=== PATIENT | female | born 1970 | race Caucasian/White ===

== ENCOUNTER 2017-02-15 15:17 | Emergency (ER) | payer MEDICAID ==
[~2017-02-15] VITALS: Wt 69.0 kg
[~2017-02-15 15:17] MED LIST: ABCC1C PO; BACTDS PO; BEN25 PO; CEPH-443 PO; LORA10TA3 PO; PRED20TA PO
--- NOTE | 2017-02-15 15:57 | ERD ---
ER Documentation Chief Complaint Date/Time DATE: 02/15/17 TIME: 15:51 Chief Complaint mouth injury from a fall no bleeding. mild swelling HPI Pleasant 46-year-old female presents to emergency department today with 1 day history of mouth injury. Patient states she was reaching for a metal basket and it fell onto the right side of her upper lip. Patient has a small abrasion , and swelling underneath right upper lip. Patient reports that hurts more today than yesterday. Has not used any medication for symptomatic relief, denies history of HSV virus. Denies any loose teeth, headache, or dry pain. Patient did not get away today and is requesting to be off work until Saturday. ROS All systems reviewed and are negative except as per history of present illness. Medications Home Meds Active Scripts Benzocaine (Oral Analgesic) 12 Ml Solution, 12 ML MM Q3HWA for mouth pain for 7 Days Prov:NATALIYA,MELODY 02/15/17 Diphenhydramine Hcl* (Benadryl*) 25 Mg Cap, 25 MG PO Q6, #30 CAP Prov:SIVA ANNE PA-C 06/20/16 Prednisone* (Prednisone*) 20 Mg Tab, 40 MG PO DAILY for 4 Days, TAB Prov:SIVA ANNE PA-C 06/20/16 Loratadine* (Loratadine*) 10 Mg Tablet, 10 MG PO DAILY, #20 TAB Prov:NATALIA LERNER PA-C 04/02/16 Prednisone* (Prednisone*) 20 Mg Tab, 40 MG PO DAILY for 4 Days, TAB Prov:NATALIA LERNER PA-C 04/02/16 Sulfamethoxazole-Trimethoprim* (Bactrim* DS) 800-160 Mg Tab, 1 TAB PO BID for 7 Days, TAB Prov:NATALIA LERNER PA-C 12/08/15 Cephalexin* (Keflex*) 500 Mg Capsule, 500 MG PO QID for 7 Days, CAP Prov:NATALIA LERNER PA-C 12/08/15 Ygsprvnsbjygj-Walokyiidh-Sqezxpmg-Codeine* (Fioricet w/Codeine*) [id number] -30MG Cap, 1 CAP PO Q4H Y for PAIN LEVEL 1-5, #14 CAP Prov:NATALIA LERNER PA-C 09/16/15 Allergies Allergies: Coded Allergies: No Known Allergy (Unverified , 04/02/16) PMhx/Soc History of Surgery: Yes (c section x's 1) Anesthesia Reaction: No Hx Neurological Disorder: No Hx Respiratory Disorders: No Hx Cardiac Disorders: No Hx Psychiatric Problems: No Hx Miscellaneous Medical Probl: No Hx Alcohol Use: No Hx Substance Use: No Hx Tobacco Use: No Physical Exam Vitals Vital Signs Date Time Temp Pulse Resp B/P Pulse Ox O2 Delivery O2 Flow Rate FiO2 02/15/17 15:19 98.5 100 21 133/84 98 Vitals stable, nursing notes reviewed Physical Exam Const: [ Atraumatic Head: Atraumatic Eyes: Normal Conjunctiva ENT: Right upper lip presents with small abrasion healing as expected, under the right side presents with edema, small abrasion, tender to palpation, patient 's teeth are not loose, tongue is midline, mucous membranes are moist, she has no other visible oral injury. Neck: Full range of motion..~ Resp: Chest rise and fall symmetrically, no rales wheezes or rhonchi to auscultation Cardio: Abd: Skin: Back: Ext: Neur: Awake and alert Psych: Normal Mood and Affect Procedures/MDM 46-year-old Irish-speaking female, translation provided by phone maisha. Reporting that a metal basket fell onto her lip causing her great pain. Physical exam finding consistent with contusion. There is no fluid-filled vesicles, no ecchymosis, no laceration or loose teeth. I feel the patient is stable for discharge at this time. And will benefit from outpatient topical analgesia, ice, and follow-up with primary physician if symptoms fail to improve as anticipated I have discussed results, examination findings, the treatment plan with the patient and family present prior to discharge. Indications for emergent reevaluation, side effects of medication were also discussed. Patient given note that she was seen today, may return to work tomorrow. All questions were answered. Patient verbalizes understanding and agrees with plan of care. Departure Condition: Good Patient Instructions: Contusion, Soft Tissue Additional Instructions: Thank you for for coming to [facility] for your care today. Please ask your nurse or provider if you have questions about your care today and do not leave until all your questions have been answered. Please use any medications given as directed and follow-up with your doctor (or the doctor you were referred to) in the next 2-3 days. If you do not have a primary care doctor you may follow up at the [facility] (listed below). You may also use motrin and tylenol as needed for fever and/or pain unless instructed otherwise by your provider or nurse. Indications for more urgent follow-up have been discussed, but you may return to the Emergency Department at ANY time for any worrisome or worsening symptoms. If you have abdominal pain, please know that no test or exam you received is perfect and you should follow up within 8 hours for continued pain. If you had any imaging studies today, such as an X-Ray or CT Scan, these studies will be reviewed later by a radiologist. You will be called if there are important findings that were not identified today, so make sure the contact information you provided at registration is correct. If you received any narcotic pain control medicine today, such as Vicodin, Morphine or Dilaudid, your coordination and judgment may be affected for a number of hours. Please do not drive or operate heavy machinery, and you may want someone to assist you at home. If you were given a prescription for narcotic medication, be aware that it is very addictive- use sparingly and only if necessary. CHANTE AN Feb 15, 2017 15:57
[2017-02-15] MEDS ORDERED: BENZ12SO MM (15:59)
== END 2017-02-15 16:25 | disposition home or self-care (01) ==
LOC: E/R 15:17
DX: S00.531A Contusion of lip, initial encounter (principal); W20.8XXA Other cause of strike by thrown, projected or falling object, initial encounter; Y92.9 Unspecified place or not applicable
CPT/HCPCS: 99283

== ENCOUNTER 2017-07-12 16:49 | Emergency (ER) | payer MEDICAID ==
[~2017-07-12] VITALS: Ht 157.5 cm; Wt 68.0 kg
[~2017-07-12 16:49] MED LIST changes: +BENZ12SO MM
[2017-07-12 16:54] VITALS: Ht 157.5 cm; Wt 68.0 kg
[2017-07-12] MEDS ORDERED: KETOROLAC 15 MG INJ IM STA (17:18)
[2017-07-12] MEDS ORDERED: DIAZEPAM 5 MG TAB PO ONE (17:30)
--- NOTE | 2017-07-12 17:34 | ERD ---
ER Documentation Chief Complaint Date/Time DATE: 07/12/17 TIME: 17:27 Chief Complaint Complains of back pain x 3 days HPI This 46-year-old Cypriot-speaking female presents to emergency department today for evaluation of back pain 1 week, pain is described as sharp, left-sided radiating down hip to thigh. Patient denies injury, loss of bowel or bladder, pain worse with rising from a seated position. Patient denies any known injury. ROS All systems reviewed and are negative except as per history of present illness. Medications Home Meds Active Scripts Diazepam* (Valium*) 5 Mg Tablet, 5 MG PO Q8 for MUSCLE SPASMS, #10 TAB Prov:NATALIYA,CHANTE 07/12/17 Naproxen* (Naprosyn*) 500 Mg Tablet, 500 MG PO BID Y for PAIN AND/OR INFLAMMATION, #20 TAB Prov:NATALIYA,CHANTE 07/12/17 Benzocaine (Oral Analgesic) 12 Ml Solution, 12 ML MM Q3HWA for mouth pain for 7 Days Prov:NATALIYA,CHANTE 02/15/17 Diphenhydramine Hcl* (Benadryl*) 25 Mg Cap, 25 MG PO Q6, #30 CAP Prov:SIVA ANNE PA-C 06/20/16 Prednisone* (Prednisone*) 20 Mg Tab, 40 MG PO DAILY for 4 Days, TAB Prov:SIVA ANNE PA-C 06/20/16 Loratadine* (Loratadine*) 10 Mg Tablet, 10 MG PO DAILY, #20 TAB Prov:NATALIA LERNER PA-C 04/02/16 Prednisone* (Prednisone*) 20 Mg Tab, 40 MG PO DAILY for 4 Days, TAB Prov:NATALIA LERNER PA-C 04/02/16 Sulfamethoxazole-Trimethoprim* (Bactrim* DS) 800-160 Mg Tab, 1 TAB PO BID for 7 Days, TAB Prov:NATALIA LERNER PA-C 12/08/15 Cephalexin* (Keflex*) 500 Mg Capsule, 500 MG PO QID for 7 Days, CAP Prov:NATALIA LERNER PA-C 12/08/15 Cvyaiirjetiju-Aduoahnqwh-Vennodlx-Codeine* (Fioricet w/Codeine*) [id number] -30MG Cap, 1 CAP PO Q4H Y for PAIN LEVEL 1-5, #14 CAP Prov:NATALIA LERNER PA-C 09/16/15 Allergies Allergies: Coded Allergies: No Known Allergy (Unverified , 04/02/16) PMhx/Soc History of Surgery: Yes (c section x's 1) Anesthesia Reaction: No Hx Neurological Disorder: No Hx Respiratory Disorders: No Hx Cardiac Disorders: No Hx Psychiatric Problems: No Hx Miscellaneous Medical Probl: No Hx Alcohol Use: No Hx Substance Use: No Hx Tobacco Use: No Physical Exam Vitals Vital Signs Date Time Temp Pulse Resp B/P Pulse Ox O2 Delivery O2 Flow Rate FiO2 07/12/17 16:54 98.3 85 20 128/81 98 Physical Exam Const: Well-nourished, well-appearing, well-hydrated, no acute distress Head: Atraumatic Eyes: Normal Conjunctiva, PERRLA, EOMI ENT: Normal External Ears, Nose and Mouth mucous membranes moist. Neck: Resp: Respirations even and unlabored, no respiratory distress Cardio: Abd: Skin: No petechiae or rashes Back: Back Exam: Skin: No bruising or rash Compartments: Soft Motor: Normal flexion and extension of bilateral hip/knee straight leg rises positive on left at 30, pain with flexion, abduction, and abduction Bones: No midline TTP Ext: No cyanosis, or edema Neur: Awake and alert Psych: Normal Mood and Affect Results 24 hrs Current Medications Medications (Trade) Dose Ordered Sig/Nikole Route PRN Reason Start Time Stop Time Status Last Admin Dose Admin Ketorolac Tromethamine (Toradol) 15 mg ONCE STAT IM 07/12/17 17:18 07/12/17 17:20 DC 07/12/17 17:27 Diazepam (Valium) 5 mg ONCE ONCE PO 07/12/17 17:30 07/12/17 17:31 DC 07/12/17 17:24 Procedures/MDM This 46-year-old female presents to emergency department for evaluation of back pain 1 week. Pain is sharp, left-sided and radiating down hip into posterior thigh. Patient denies injury, alteration in bowel or bladder. I have little suspicion of acute coronary syndrome, malignancy, or disc infection. I have little suspicion for cauda equina. Patient straight leg rises are positive on the left at 30, lumbar spine x-ray is not indicated at this time. Patient treated in emergency department with Toradol 15 mg intramuscularly, 5 mg of value, patient reassessed after 30 minutes with improvement of symptoms. Patient will be discharged home with Naprosyn 1 tab p.o. twice daily 10 days, Valium 5 mg 1 tab p.o. every 8 hours as needed count of 10 given. Return to emergency department for worsening of symptoms, pain not responding to pharmacology, alteration in bowel or bladder, difficulty ambulating. I feel the patient is stable for discharge at this time. I have discussed results, examination findings, the treatment plan with the patient and family present prior to discharge. Indications for emergent reevaluation, side effects of medication were also discussed. All questions were answered. Patient verbalizes understanding and agrees with plan of care. Departure Diagnosis: Primary Impression: Back pain Back pain location: low back pain Chronicity: unspecified Back pain laterality: left Sciatica presence: with sciatica Sciatica laterality: sciatica of left side Qualified Code: M54.42 - Left-sided low back pain with left-sided sciatica, unspecified chronicity Patient Instructions: Back Pain W/ Sciatica Additional Instructions: Thank you for for coming to [facility] for your care today. Please ask your nurse or provider if you have questions about your care today and do not leave until all your questions have been answered. Please use any medications given as directed and follow-up with your doctor (or the doctor you were referred to) in the next 2-3 days. If you do not have a primary care doctor you may follow up at the [facility] (listed below). You may also use motrin and tylenol as needed for fever and/or pain unless instructed otherwise by your provider or nurse. Indications for more urgent follow-up have been discussed, but you may return to the Emergency Department at ANY time for any worrisome or worsening symptoms. If you have abdominal pain, please know that no test or exam you received is perfect and you should follow up within 8 hours for continued pain. If you had any imaging studies today, such as an X-Ray or CT Scan, these studies will be reviewed later by a radiologist. You will be called if there are important findings that were not identified today, so make sure the contact information you provided at registration is correct. If you received any narcotic pain control medicine today, such as Vicodin, Morphine or Dilaudid, your coordination and judgment may be affected for a number of hours. Please do not drive or operate heavy machinery, and you may want someone to assist you at home. If you were given a prescription for narcotic medication, be aware that it is very addictive- use sparingly and only if necessary. CHANTE AN Jul 12, 2017 17:34
[2017-07-12] MEDS ORDERED: NAPR-260 PO (17:35)
[2017-07-12] MEDS ORDERED: DIAZ-90 PO (17:35)
== END 2017-07-12 18:18 | disposition home or self-care (01) ==
LOC: FTE 16:49
DX: M54.42 Lumbago with sciatica, left side (principal)
CPT/HCPCS: 96372; J1885; Z7502; Z7610

== ENCOUNTER 2018-06-12 06:23 | Emergency (ER) | END 2018-06-12 10:00 | disposition home or self-care (01) ==

== ENCOUNTER 2018-08-18 22:03 | Emergency (ER) | END 2018-08-19 03:42 | disposition home or self-care (01) ==